=== PATIENT | female | born 1955 ===

== ENCOUNTER 2016-08-10 06:54 | Emergency (ER) | payer BC ==
[2016-08-10] MEDS ORDERED: PROZAC20 M3 PO (07:18)
[2016-08-10] MEDS ORDERED: IBUPROFEN800 M1 PO (07:18)
[2016-08-10 07:43] LABS: URINE BILIRUBIN NEGATIVE (NEG); URINE BLOOD LARGE (NEG); URINE GLUCOSE (UA) NEGATIVE (NEG); URINE KETONE NEGATIVE (NEG); URINE LEUKOCYTE ESTERASE NEGATIVE (NEG); URINE NITRITE NEGATIVE (NEG); URINE PROTEIN NEGATIVE (NEG); URINE SPECIFIC GRAVITY 1.015 (1.003-1.030)
[2016-08-10 07:44] LABS: URINE APPEARANCE HAZY; URINE COLOR YELLOW
[2016-08-10 07:54] LABS: URINE AMORPHOUS 4+; URINE WBC 0-1 /[HPF] (0-5)
[2016-08-10 07:55] LABS: URINE EPITHELIAL CELLS 0 /[HPF] (0-10)
[2016-08-10 08:40] LABS: BASO % 0.2 % (0-2); EOS % 0.6 % (0-7); EOSINOPHIL ABSOLUTE COUNT 0.1 tho/cmm (0.0-0.7); HCT-HEMATOCRIT 40.7 % (34.0-49.0); HGB-HEMOGLOBIN 13.6 gm/dl (12.0-15.5); IMMATURE GRANULOCYTES ABSOLUTE 0.01 tho/cmm (0-0.03); IMMATURE GRANULOCYTES PERCENT 0.1 % (0-0.3); LYMPH % 13.1 % (20-45); LYMPH ABSOLUTE COUNT 1.2 tho/cmm (0.8-4.5); MCH (MEAN CORPUSCULAR HGB) 29.9 pg (28.0-32.0); MCHC MEAN CORPUSCULAR HGB CONC 33.4 % (32.0-36.0); MCV (MEAN CELL VOLUME) 89.5 fl (82.0-96.0); MEAN PLATELET VOLUME 8.8 cmc (9.4-12.4); MONO % 5.3 % (0-12); MONOCYTE ABSOLUTE COUNT 0.5 tho/cmm (0.0-1.2); NEUTROPHIL ABSOLUTE COUNT 7.2 tho/cmm (1.6-8.0); NEUTROPHIL-AUTOMATED 7.2 tho/cmm (1.6-8.0); NEUTROPHILS % 80.7 % (40-80); PLATELET COUNT 255 tho/cmm (150-450); RED BLOOD COUNT 4.55 mil/cmm (4.00-5.20); RED CELL DISTRIBUTION WIDTH 13.5 % (12.4-16.4)
[2016-08-10 08:49] LABS: CREATININE 0.81 mg/dl (0.50-1.10); eGFR VALUE FOR BLACK >90 mL/Min
[2016-08-10 08:51] LABS: PREGNANCY-SERUM NEGATIVE (NEGATIVE)
== END 2016-08-10 09:46 ==
LOC: EDMED 06:54
PROVIDERS: Emergency Medicine
DX: M54.5 Low back pain (principal); R10.9 Unspecified abdominal pain; N93.9 Abnormal uterine and vaginal bleeding, unspecified; R31.9 Hematuria, unspecified